=== PATIENT | female | born 1975 | race Caucasian/White ===

== ENCOUNTER 2019-03-19 18:11 | Emergency (ER) | payer SELFPAY ==
[~2019-03-19] VITALS: Ht 162.6 cm; Wt 63.7 kg
[2019-03-19 18:15] VITALS: Ht 162.6 cm; Wt 63.7 kg
[2019-03-19 19:04] VITALS: BP 108/64; PULSE 77; RESP 16
--- NOTE | 2019-03-19 21:13 | ERD ---
ER Documentation Chief Complaint Chief Complaint right ear bump. 5/10 pain, worse at night. HPI 43-year-old female presenting to the emergency department complaining of swelling to the right neck in the tonsillar lymph node region. Her pain is rated 5/10 in severity which is worse at night. She tried [id number] medication with some relief. She denies any cough, cold, ear pain, sore throat, fevers, chills, night sweats, or other symptoms at this time. ROS All systems reviewed and are negative except as per history of present illness. Medications Home Meds Reported Medications [None] No Conflict Check 04/10/10 Allergies Allergies: Coded Allergies: No Known Allergies (Verified Allergy, Mild, 03/19/19) PMhx/Soc History of Surgery: Yes () Anesthesia Reaction: No Hx Neurological Disorder: No Hx Respiratory Disorders: No Hx Cardiac Disorders: No Hx Psychiatric Problems: No Hx Miscellaneous Medical Probl: No Hx Alcohol Use: No Hx Substance Use: No Hx Tobacco Use: No FmHx Family History: No diabetes Physical Exam Vitals Vital Signs Date Temp Pulse Resp B/P (MAP) Pulse Ox O2 O2 Flow FiO2 Time Delivery Rate 03/19/19 98.3 77 16 108/64 100 Room Air 19:04 (79) 03/19/19 97.9 78 18 117/82 18:15 (94) Physical Exam Const: No acute distress Head: Atraumatic Eyes: Normal Conjunctiva ENT: Normal External Ears, Nose and Mouth. Inflamed, soft, movable tender right tonsillar lymph node. Tympanic membranes and EACs are normal in appearance bilaterally. Posterior pharynx is clear. There is no tonsillar enlargement or exudate. Uvula is midline. Airway is patent. Neck: Full range of motion. No meningismus. Resp: Clear to auscultation bilaterally Cardio: Regular rate and rhythm, no murmurs Skin: No petechiae or rashes Ext: No cyanosis, or edema Neur: Awake and alert Psych: Normal Mood and Affect Procedures/MDM 43-year-old female presenting to the emergency department for right tonsillar lymphadenopathy. Patient is nontoxic, well-appearing, afebrile. The patient's clinical presentation is very consistent with an acute viral syndrome. The patient does not exhibit any clinical signs or symptoms concerning for ser ious bacterial infection or systemic illness. Based on history and clinical exam findings the patient does not appear to have evidence of pneumonia, strep pharyngitis, urinary tract infection, bacteremia, sepsis, or meningitis. For these reasons I do not believe it is necessary to obtain laboratory testing or diagnostic imaging. I believe it would be appropriate for symptom control, and close outpatient primary care follow-up. Based on patient's history of present illness and physical examination the deci oumar was made to discharge. There is no evidence of life threatening injuries or illnesses at this time. On re-examination, patient resting in no distress, stable vital signs, reports feeling better and safe for discharge with outpatient follow up with PMD in 1-2 days. Patient given return precautions. Departure Diagnosis: Primary Impression: Lymphadenopathy Condition: Fair Patient Instructions: Lymphedema Referrals: [facility] YOU HAVE RECEIVED A MEDICAL SCREENING EXAM AND THE RESULTS INDICATE THAT YOU DO NOT HAVE A CONDITION THAT REQUIRES URGENT TREATMENT IN THE EMERGENCY DEPARTMENT. FURTHER EVALUATION AND TREATMENT OF YOUR CONDITION CAN WAIT UNTIL YOU ARE SEEN IN YOUR DOCTORS OFFICE WITHIN THE NEXT 1-2 DAYS. IT IS YOUR RESPONSIBILITY TO MAKE AN APPOINTMENT FOR FOLOW-UP CARE. IF YOU HAVE A PRIMARY DOCTOR --you should call your primary doctor and schedule an appointment IF YOU DO NOT HAVE A PRIMARY DOCTOR YOU CAN CALL OUR PHYSICIAN REFERRAL HOTLINE AT IF YOU CAN NOT AFFORD TO SEE A PHYSICIAN YOU CAN CHOSE FROM THE FOLLOW[facility] [id number] [facility]. [facility] [address] [facility] [address] [facility] [facility] [address] [facility] [address] [facility]. [facility]. [address] Additional Instructions: Call your primary care doctor TOMORROW for an appointment during the next 1-2 days.See the doctor sooner or return here if your condition worsens before your appointment time. ASHU VASQUEZ PA-C Mar 19, 2019 21:13
== END 2019-03-19 19:05 | disposition home or self-care (01) ==
LOC: FTE 18:11
DX: R59.0 Localized enlarged lymph nodes (principal)
CPT/HCPCS: 99282